=== PATIENT | male | born 1995 | race Caucasian/White ===

== ENCOUNTER 2017-08-01 20:29 | Emergency (ER) | payer BC ==
[~2017-08-01] VITALS: Ht 190.5 cm; Wt 91.9 kg
[2017-08-01 20:30] VITALS: BP 161/69
--- NOTE | 2017-08-01 20:36 | NUR ---
PT.AMBULATED TO ER BED 7
--- NOTE | 2017-08-01 20:39 | NUR ---
Note undone in EDM - 08/01/17 at 2119 by [facility] 22Y/M PT. PRESESNT TO ED WITH C/O LT. SHOULDER PAIN. PT. FELL WHILE SHOWERING. AAO X4, AMBULATORY WITH STDEAY GAIT. LT. SHOULDER PAIN, NO DEPORMITY, PAIN 09/30. VSS, ER MADE AWARE OFPT. STATUS
--- NOTE | 2017-08-01 20:39 | NUR ---
22Y/M PT. PRESESNT TO ED WITH C/O LT. SHOULDER PAIN. PT. FELL WHILE SHOWERING. AAO X4, AMBULATORY WITH STDEAY GAIT. LT. SHOULDER PAIN, DEPORMITY, PAIN 09/30. VSS, ER MADE AWARE OFPT. STATUS
[2017-08-01] MEDS ORDERED: KETOROLAC 60 MG/2 ML VIAL IM ONE (21:05)
--- NOTE | 2017-08-01 21:06 | NUR ---
X-Ray at bedside.
--- NOTE | 2017-08-01 21:12 | NUR ---
Dr. Ospina evaluating patient at bedside.
--- NOTE | 2017-08-01 21:20 | NUR ---
XRAY LT. SHOULDER DISLOCATED, DR. BELTRAN PERFORM LT. SHOULDER REDUCTION AT BEDSIDE. PT. REFUSED TO BE SEDATED. TOLERATED WELL.
--- NOTE | 2017-08-01 21:36 | NUR ---
REPEAT XRAY LT. SHOULDER
[2017-08-01 21:51] VITALS: BP 131/83
--- NOTE | 2017-08-01 21:51 | NUR ---
Patient discharged with v/s stable. Written and verbal after care instructions given and explained. Patient alert, oriented and verbalized understanding of instructions. Ambulatory with steady gait. All questions addressed prior to discharge. ID band removed. Patient advised to follow up with PMD. Rx of MOTRIN 800 MG given. Patient educated on indication of medication including possible reaction and side effects. Opportunity to ask questions provided and answered.
== END 2017-08-01 21:51 | disposition home or self-care (01) ==
LOC: MED 20:29
DX: S43.005A Unspecified dislocation of left shoulder joint, initial encounter (principal); X58.XXXA Exposure to other specified factors, initial encounter; Y93.89 Activity, other specified; Y92.89 Other specified places as the place of occurrence of the external cause; Y99.8 Other external cause status
CPT/HCPCS: 23650; 73030; 96372; 99284; J1885; Q0092